=== PATIENT | female | born 1975 | race Hispanic/Latino ===

== ENCOUNTER 2021-09-04 11:28 | Emergency (ER) | payer OTHER ==
[~2021-09-04] VITALS: Ht 162.6 cm; Wt 103.9 kg
[2021-09-04] MEDS ORDERED: KETOROLAC TROMETHAMINE 30 MG/ML VIAL IV STA (12:32)
[2021-09-04] MEDS ORDERED: KETOROLAC TROMETHAMINE 30 MG/ML VIAL ONE (12:50)
== END 2021-09-04 13:19 | disposition home or self-care (01) ==
LOC: FSED 12:26
DX: R06.02 Shortness of breath (principal); R07.9 Chest pain, unspecified; R50.9 Fever, unspecified; R94.31 Abnormal electrocardiogram [ECG] [EKG]
CPT/HCPCS: 71046; 80053; 82553; 84484; 85025; 85379; 93005; 96374; 99284; J1885

== ENCOUNTER 2023-10-20 23:21 | Inpatient (IN) | payer OTHER ==
[~2023-10-20] VITALS: Ht 160 cm; Wt 95.3 kg
[~2023-10-20 23:21] MED LIST: NEURONTIN100 MG PO; ONDANSETRON ODT4 MG PO; PROVENTIL HFA6.7 GM INH; SYMBICORT 80-10.2 GM INH; augmentin PO; tylenol #3 PO
[2023-10-20 23:33] VITALS: PULSE 79; RESP 18; TEMP 99.9
[2023-10-21] MEDS ORDERED: IOPAMIDOL 370 MG/ML 100 ML INFUS..BTL INJ ONE (00:35)
[2023-10-21] MEDS: KETOROLAC TROMETHAMINE 30 MG/ML VIAL IV STA (00:36)
[2023-10-21] MEDS: SODIUM CHLORIDE 0.9% 1000ML 1,000 ML IV ONE (00:37)
[2023-10-21 02:58] VITALS: BP 119/68; PULSE 68; RESP 20; TEMP 98; O2SAT 98
[2023-10-21 03:30] VITALS: BP 119/68; PULSE 68; RESP 20; TEMP 98; O2SAT 98
[2023-10-21] MEDS: FAMOTIDINE 20 MG/2 ML VIAL IV SCH (03:38)
[2023-10-21] MEDS: D5.45%NS/KCL 20MEQ 1,000 ML IV SCH (03:38)
[2023-10-21 08:05] VITALS: BP 118/67; PULSE 65; RESP 18; TEMP 97.5; O2SAT 100
[2023-10-21 09:55] VITALS: BP 118/67; PULSE 65; RESP 18; TEMP 97.5; O2SAT 100
[2023-10-21 10:32] LABS: BASOPHILS % 0.4 % (0.0-1.0); EOSINOPHILS # (AUTO) 0.1 (0.0-0.4); HEMATOCRIT 39.2 % (34.2-44.1); HEMOGLOBIN 12.7 g/dL (12.0-16.0); LYMPHOCYTES # (AUTO) 1.9 (1.0-3.2); MEAN CORPUSCULAR HEMOGLOBIN 29.2 pg (28-32); MEAN CORPUSCULAR HGB CONC 32.4 g/dL (31-35); MEAN CORPUSCULAR VOLUME 90.1 fL (81-99); MONOCYTES # (AUTO) 0.5 (0.2-0.8); MONOCYTES % 6.3 % (4.4-11.3); NEUTROPHILS # (AUTO) 5.7 (2.1-6.9); NEUTROPHILS % 68.8 % (38.7-80.0); PLATELET COUNT 283 x10e3/uL (140-360); RED BLOOD COUNT 4.35 x10e6/uL (3.6-5.1); RED CELL DISTRIBUTION WIDTH 12.7 % (11.7-14.4); WHITE BLOOD COUNT 8.32 x10e3/uL (4.8-10.8)
[2023-10-21 10:49] LABS: INR 1.03
[2023-10-21 10:50] LABS: PARTIAL THROMBOPLASTIN TIME 32.8 seconds (23.8-35.5)
[2023-10-21 10:55] LABS: ANION GAP 13.7 mmol/L (8-16); CALCIUM 8.9 mg/dL (8.4-10.2); CREATININE, SERUM 0.73 mg/dL (0.57-1.11); POTASSIUM 3.7 mmol/L (3.5-5.1)
[2023-10-21] MEDS ORDERED: PROPOFOL IV EMULSION 10 MG/ML 20 ML VIAL ONE (11:56)
[2023-10-21] MEDS ORDERED: ONDANSETRON HCL INJ 2MG/ML 2ML 2 MG/ML VIAL ONE (11:56)
[2023-10-21] MEDS ORDERED: SEVOFLURANE INHAL SOLN 250 ML PEN BTL ONE (11:56)
[2023-10-21] MEDS ORDERED: DEXAMETHASONE SOD PHOS INJ 4 MG/ML SDV ONE (11:56)
[2023-10-21] MEDS ORDERED: LIDOCAINE HCL 2% LOCAL INJ 5 ML SDV VIAL INJ ONE (11:56)
[2023-10-21] MEDS ORDERED: ONDANSETRON HCL INJ 2MG/ML 2ML 2 MG/ML VIAL IV PRN (12:00)
[2023-10-21] MEDS ORDERED: FENTANYL CITRATE/PF 100MCG/2 ML INJ ONE (12:41)
[2023-10-21] MEDS: Morphine 2mg Syringe 2 MG/ML SYR IV PRN (14:55)
[2023-10-21] MEDS: ONDANSETRON HCL INJ 2MG/ML 2ML 2 MG/ML VIAL IV PRN (14:55)
[2023-10-21 15:43] VITALS: BP 121/66; PULSE 66; RESP 18; TEMP 98.4; O2SAT 98
[2023-10-21] MEDS: POLYETHYLENE GLYCOL 3350 17 GM PACK PO SCH (16:54)
[2023-10-21 20:00] VITALS: BP 123/71; PULSE 81; RESP 20; TEMP 99.4; O2SAT 98
[2023-10-21] MEDS ORDERED: ACETAMINOPHEN 325 MG TAB PO PRN (21:15)
[2023-10-22] VITALS: BP 124/73; PULSE 68; RESP 16; TEMP 98.5; O2SAT 97
[2023-10-22 04:00] VITALS: BP 113/71; PULSE 78; RESP 18; TEMP 98.3; O2SAT 100
[2023-10-22 08:00] VITALS: BP 126/73; PULSE 69; RESP 20; TEMP 98; O2SAT 100
[2023-10-22 08:03] LABS: BASOPHILS % 0.1 % (0.0-1.0); EOSINOPHILS % 0.2 % (0.0-6.0); HEMATOCRIT 36.3 % (34.2-44.1); HEMOGLOBIN 11.5 g/dL (12.0-16.0); LYMPHOCYTES # (AUTO) 2.4 (1.0-3.2); LYMPHOCYTES % 26.8 % (18.0-39.1); MEAN CORPUSCULAR HEMOGLOBIN 28.7 pg (28-32); MEAN CORPUSCULAR HGB CONC 31.7 g/dL (31-35); MEAN CORPUSCULAR VOLUME 90.5 fL (81-99); MONOCYTES # (AUTO) 0.6 (0.2-0.8); MONOCYTES % 6.6 % (4.4-11.3); PLATELET COUNT 280 x10e3/uL (140-360); RED BLOOD COUNT 4.01 x10e6/uL (3.6-5.1); RED CELL DISTRIBUTION WIDTH 12.8 % (11.7-14.4); WHITE BLOOD COUNT 9.09 x10e3/uL (4.8-10.8)
[2023-10-22 08:32] LABS: ANION GAP 11.9 mmol/L (8-16); CALCIUM 8.6 mg/dL (8.4-10.2); CREATININE, SERUM 0.74 mg/dL (0.57-1.11); POTASSIUM 3.9 mmol/L (3.5-5.1)
[2023-10-22] MEDS: DOCUSATE SODIUM 100 MG CAP PO SCH (09:49)
[2023-10-22] MEDS: SENNOSIDES 8.6 MG TAB PO SCH (09:49)
[2023-10-22] MEDS ORDERED: AMOX TR-K CLV1 EAC2 PO (10:30)
[2023-10-22 10:41] VITALS: BP 126/73; PULSE 69; RESP 20; TEMP 98; O2SAT 100
[2023-10-22] MEDS: HYDROCODONE/APAP 5MG-325MG TAB PO PRN (11:18)
[2023-10-22 12:06] VITALS: BP 131/77; PULSE 57; RESP 18; TEMP 98.3; O2SAT 100
[2023-10-22] MEDS ORDERED: HYDROCODON-ACE1 EA11 PO (18:36)
== END 2023-10-22 14:40 | disposition home or self-care (01) | DRG 394 ==
LOC: FSED 23:32 → ERHOLD 10-21 01:34 → MED/SURG3 10-21 03:02
PROVIDERS: ADMIT Internal Medicine; ATTEND Internal Medicine
PROC: 0J9B0ZZ Drainage of Perineum Subcutaneous Tissue and Fascia, Open Approach (ICD-10-PCS; principal; 2023-10-21 11:23)
DX: K61.0 Anal abscess (principal); L03.317 Cellulitis of buttock; J45.909 Unspecified asthma, uncomplicated; E66.09 Other obesity due to excess calories; Z68.37 Body mass index [BMI] 37.0-37.9, adult; B96.89 Other specified bacterial agents as the cause of diseases classified elsewhere; K64.4 Residual hemorrhoidal skin tags; Z79.51 Long term (current) use of inhaled steroids; Z90.49 Acquired absence of other specified parts of digestive tract; Z90.710 Acquired absence of both cervix and uterus
CPT/HCPCS: 36415; 36568; 72193; 80048; 80053; 83605; 83735; 85025; 85610; 85730; 87040; 87071; 87075; 87186; 87205; 96374; 99284; J1100; J1885; J2001; J2270; J2405; J2543; J7030; Q9967

== ENCOUNTER → 2024-01-25 | Day surgery (SDC) | payer OTHER ==
[2024-01-23 11:11] LABS: BASOPHILS % 0.7 % (0.0-1.0); EOSINOPHILS # (AUTO) 0.3 (0.0-0.4); EOSINOPHILS % 5.5 % (0.0-6.0); HEMATOCRIT 40.6 % (34.2-44.1); HEMOGLOBIN 13.1 g/dL (12.0-16.0); LYMPHOCYTES # (AUTO) 2.3 (1.0-3.2); LYMPHOCYTES % 38.5 % (18.0-39.1); MEAN CORPUSCULAR HEMOGLOBIN 29.6 pg (28-32); MEAN CORPUSCULAR HGB CONC 32.3 g/dL (31-35); MEAN CORPUSCULAR VOLUME 91.6 fL (81-99); MONOCYTES # (AUTO) 0.4 (0.2-0.8); MONOCYTES % 7.4 % (4.4-11.3); NEUTROPHILS # (AUTO) 2.8 (2.1-6.9); NEUTROPHILS % 47.6 % (38.7-80.0); PLATELET COUNT 298 x10e3/uL (140-360); RED BLOOD COUNT 4.43 x10e6/uL (3.6-5.1); RED CELL DISTRIBUTION WIDTH 12.7 % (11.7-14.4); WHITE BLOOD COUNT 5.95 x10e3/uL (4.8-10.8)
[~2024-01-25] MED LIST changes: +AMOX TR-K CLV1 EAC2 PO; +BUPIVACAINE 0.5%/EPI 30 ML SDV INJ ONE; +BUPIVACAINE HCL 0.5% INJ 30 ML VIAL INJ ONE; +CEFUROXIME250 MG PO; +DEXAMETHASONE SOD PHOS INJ 4 MG/ML SDV ONE; +FENTANYL CITRATE/PF 100MCG/2 ML INJ ONE; +HYDROCODON-ACE1 EA11 PO; +LACTATED RINGER'S 1,000 ML ONE; +LIDOCAINE HCL 2% LOCAL INJ 5 ML SDV VIAL INJ ONE; +MIDAZOLAM HCL 2 MG/2 ML VIAL ONE; +MIRALAX17 GM PO; +ONDANSETRON HCL INJ 2MG/ML 2ML 2 MG/ML VIAL ONE; +PROCTOSOL-HC28.35 GM PR; +PROPOFOL IV EMULSION 0 ML IV ONE; +PROPOFOL IV EMULSION 10 MG/ML 20 ML VIAL ONE; +VENTOLIN HFA18 GM INH
[2024-01-25 16:41] VITALS: TEMP 98.1
[2024-01-25 17:30] VITALS: BP 125/76; PULSE 72; RESP 16; O2SAT 97
== END | disposition home or self-care (01) ==
LOC: OR 11:39
PROVIDERS: ATTEND Surgery
DX: K60.319 Anal fistula, simple, unspecified (principal); D64.9 Anemia, unspecified; J45.909 Unspecified asthma, uncomplicated; E78.5 Hyperlipidemia, unspecified; R00.1 Bradycardia, unspecified; E66.01 Morbid (severe) obesity due to excess calories; M06.9 Rheumatoid arthritis, unspecified; Z01.812 Encounter for preprocedural laboratory examination; Z79.899 Other long term (current) drug therapy; Z68.37 Body mass index [BMI] 37.0-37.9, adult
CPT/HCPCS: 36415; 46275; 84702; 85025; J0694; J1100; J2003; J2250; J2405; J2704; J3010; J7121